=== PATIENT | female | born 1990 | race Caucasian/White ===

== ENCOUNTER 2020-05-28 19:28 | Observation (INO) | payer OTHER, SELFPAY ==
--- NOTE | ~2020-05-28 | MR_ITS ---
EXAMINATION: MR abdomen wo con INDICATION: Right lower abdominal pain TECHNIQUE: Coronal SSFSE ARC, Coronal 2D FIESTA Fat Sat, Sagittal SSFSE Fat Sat ARC, Sagittal SD FIES TA Fat Sat, Axial 3D DualEcho, Axial LAVA, Axial STIR, Axial 2D FIESTA Fat Sat, Axial SSFSE ARC COMPARISON: None FINDINGS: The appendix is normal in size measuring 6 mm. There is a trace amount of nonspecific fluid in the pelvis and right lower quadrant. The visualized portions of the liver, spleen, pancreas, gall bladder, and adrenal glands are normal. The kidneys are unremarkable. There are no dilated loops of b owel. No pathologically enlarged abdominal or pelvic lymph nodes are identified. An intrauterine gest ation is identified. There is a 1.7 cm cyst of the left ovary. IMPRESSION: 1. No MRI correlate for the patient's symptoms. Reviewed, dictated and finalized at location A.
--- NOTE | ~2020-05-28 | US_ITS ---
EXAMINATION: US OB limited DATE: 05/29/2020 13:05 INDICATION: First trimester viability assessment TECHNIQUE: Real-time pelvic transabdominal and transvaginal ultrasound was performed. COMPARISON: None. FINDINGS: The uterus measures 9.1 x 6.7 x 8.0 cm. There is an intrauterine gestational sac. A yolk s ac is identified. heart motion is identified measuring 167 beats per minute (bpm) by M-mode Dop pler. The crown rump length measures 1.3 cm , which correlates with an estimated gestational ag e of 7 weeks and 3 day(s) (+/-) 4 day(s). The right ovary measures 2.7 x 2.9 x 1.3 cm. The left ovary measures 2.3 x 2.2 x 1.6 cm. There is nor mal vascular flow in the ovaries. There is no free fluid in the pelvis. IMPRESSION: 1. Live intrauterine with an estimated gestational age of 7 weeks and 3 day(s) (+/-) 4 day( s) and an estimated delivery date of 01/12/2021. Reviewed, dictated and finalized at location A. IMPRESSION: 1. Live intrauterine with an estimated gestational age of 7 weeks and 3 day(s) (+/-) 4 day(s) and an estimated delivery date of 01/12/2021.
[2020-05-28 19:50] VITALS: BP 107/82; PULSE 127; RESP 20; TEMP 37.1; O2SAT 100
--- NOTE | 2020-05-28 20:36 | ED.ABDPAIN ---
HPI - Abdominal Pain General Chief Complaint: Abdominal Pain Stated Complaint: 7 weeks , can't keep anything down Time Seen by Provider: 05/28/20 20:21 Source: patient Mode of arrival: ambulatory History of Present Illness HPI narrative: This patient is a 29 year old female approximately 7 weeks 5 days who presents for evaluation of nausea and vomiting. She states she has been having nausea and vomiting today, and she is unable to keep anything down. She also reports right lower abdominal pain today. She notices this pain with walking and moving. She also reports temperature at home 100 F. She thinks she may be dehydrated. She has also already had a ultrasound showing an IUP with left ovarian cyst. Related Data Home Medications Medication Instructions Recorded Confirmed aspirin [Aspir-81] 81 mg PO HS 05/28/20 05/29/20 buspirone 5 mg PO HS 05/28/20 05/29/20 progesterone micronized 200 mg PO HS 05/28/20 05/29/20 PNV,calcium 61-[id number]-[id number] acid 1 tablet PO HS 05/29/20 05/29/20 [ Vitamin Plus Low Iron] Allergies Allergy/AdvReac Type Severity Reaction Status Date / Time No Known Allergies Allergy Verified 05/28/20 19:55 Review of Systems Review of Systems: All systems reviewed & are unremarkable except as noted in HPI and below Constitutional: Constitutional: Denies chills and Reports fever(s) Gastrointestinal: Gastrointestinal: Reports abdominal pain, Reports constipation, Denies diarrhea, Reports nausea and Reports vomiting Genitourinary: Genitourinary: Denies abnormal vaginal bleeding, Denies hematuria, Denies nocturia, Denies dysuria and Denies vaginal discharge [facility] Past Medical History Medical History (Updated 05/29/20 @ 07:56 by Yanira Harper MD) Anxiety History of recurrent , currently x 3 x 2 required D&C (normal spontaneous vaginal delivery) x 2 Surgical History Surgical History (Updated 05/29/20 @ 07:55 by Yanira Harper MD) H/O dilation and curettage x 2 Social History Social History (Updated 05/28/20 @ 20:37 by Naima Horn MD) Smoking status: Never smoker Alcohol intake: never Substance use: never Substance use type: does not use Gender identity (if verbalized by the patient): Female Spiritual care concerns: No Exam Const: General: no acute distress and alert Orientation/consciousness: patient oriented x3 HENMT: Head: normocephalic and atraumatic Ears: TM's normal bilaterally Face and sinus: face symmetric Mouth: Yes moist mucous membranes Eyes: EOM: EOMs intact bilaterally Chest: Chest palpation & inspection: normal inspection of the chest Resp: Effort & Inspection: normal respiratory effort, no retractions and no use of accessory muscles Auscultation: clear to auscultation bilaterally Cardio: Rate: tachycardic Rhythm: regular rhythm Heart sounds: no murmurs GI: GI Palp: Yes Soft to palpation, Yes Tenderness to palpation present (GI) (RLQ, suprapubic), No Guarding due to palpation present (GI) and No Rigid due to palpation : General: Yes no CVA tenderness Course Consultations Consultation #1: I discussed case with Dr. harper who agrees to admit or consult on patient with surgery involved for rule out appy. Bedside US shows IUP Date: 05/28/20 Time: 22:26 Vital Signs Vital signs: Vital Signs Temperature 98.7 F 05/28/20 19:50 Pulse Rate 127 H 05/28/20 19:50 Respiratory Rate 20 05/28/20 19:50 Blood Pressure 107/82 05/28/20 19:50 Pulse Oximetry 100 05/28/20 19:50 Temperature 98.3 F 05/29/20 06:00 Pulse Rate 91 05/29/20 06:00 Respiratory Rate 16 05/29/20 06:00 Blood Pressure 112/55 L 05/29/20 06:00 Pulse Oximetry 99 05/29/20 06:00 MDM - Abdominal Pain Lab Data Attestation: I reviewed the patient's lab results. Result diagrams: 05/29/20 05:12 05/29/20 05:12 Labs: Lab Results 05/28/20 05/28/20 09/0
[2020-05-28] MEDS: ONDANSETRON INJ 4 MG/2 ML VIAL IV PUSH (20:53)
[2020-05-28] MEDS: LACTATED RINGERS 1,000 ML 999 ML IV CONT ×2 (20:53→21:55)
[2020-05-28 21:02] LABS: Hematocrit 36.8 % (37.0-47.0); Hemoglobin 12.8 g/dL (12.0-15.0); Mean Corpuscular HGB Conc 34.8 g/dl (32-36); Mean Corpuscular Hemoglobin 30.9 pg (26-34); Mean Corpuscular Volume 88.9 fl (80-100); Mean Platelet Volume 10.5 fl (7.4-10.4); Platelet Count Result 251 k/mm3 (150-375); Red Blood Count 4.14 M/mm3 (4.2-5.4); Red Cell Distribution Width 12.6 % (11.5-14.5); White Blood Count 20.2 K/mm3 (4.5-10.0)
[2020-05-28 21:07] LABS: Add Urine Microscopic? YES; Appearance Urine Clear (Clear); Bacteria Urine Trace /hpf; Bilirubin Urine Negative (Negative); Blood Urine Negative (Negative); Color Urine Yellow (Yellow); Glucose Urine UA Negative (Negative); Ketones Urine 2+ mg/dL (Negative); Leukocyte Esterase Ur Negative LEU/UL (Negative); Mucus Urine Rare /lpf; Nitrate Urine Negative (Negative); Protein Urine Negative (Negative); RBC Urine 0-2 /hpf (0-2); Specific Grav Ur 1.016 (1.001-1.035); Squamous Epithelial Cell Urine Occasional /hpf (Few); Urobilinogen Urine Negative mg/dL (<2.0); WBC Urine 0-3 /hpf
[2020-05-28 21:13] LABS: Alanine Aminotransferase 22 U/L (4-35); Albumin Level 4.3 g/dL (3.5-5.1); Alkaline Phosphatase 57 U/L (38-126); Anion Gap 11 mmol/L (8-16); Aspartate Amino Transferase 22 U/L (14-36); Bilirubin,Total 0.6 mg/dL (0.2-1.3); Blood Urea Nitrogen 8 mg/dL (7-17); Calcium 8.7 mg/dL (8.4-10.2); Carbon Dioxide 21 mmol/L (22-30); Chloride 102 mmol/L (98-107); Estimated CRCL calculation 109 ml/min; Estimated Glomerular Filt Rate > 60; Glucose 93 mg/dL (65-105); Potassium 3.9 mmol/L (3.4-5.0); Sodium 134 mmol/L (137-145)
[2020-05-28 21:16] LABS: Band Neutrophils Percent 2 % (0-6); Monocytes Percent Manual 3 % (3-9); Neutrophils Absolute Manual 18.98 K/mm3 (1.7-7.2); Neutrophils Percent Manual 92 % (46-73); Platelet Estimate Adequate (Adequate); Total Cells Counted 100
[2020-05-28 21:19] VITALS: BP 120/72; PULSE 97; RESP 17; O2SAT 100
[2020-05-28 22:11] VITALS: BP 113/70; PULSE 88; RESP 21; O2SAT 100
[2020-05-28] MEDS: PROMETHAZINE HCL 25 MG/ML AMPUL 12.5 MG IV PUSH (22:40)
[2020-05-28 23:45] VITALS: BP 113/49; PULSE 87; RESP 16; TEMP 37.3; O2SAT 99
--- NOTE | 2020-05-29 00:03 | ADMGEN ---
This patient, Nichole Chauhan, was admitted to Medical Room 253-01. Patient/family oriented to hospital policies and general routines including ID bracelet, bed and alarms, visiting hours, pain management, procedures, bathroom and other care routines, personal items, smoking policy, room service/diet, and visiting hours. Valuables list has been completed. Information on how to activate the Rapid Response Team has been discussed. Patient/Family are encouraged to report perceived risks to care and to ask questions if they do not understand what they are told or what they should do.
[2020-05-29 00:16] VITALS: BP 128/54; PULSE 88; RESP 16; TEMP 36.7; O2SAT 100; BMI 26.5
[2020-05-29] MEDS: LACTATED RINGERS 1,000 ML 125 ML IV CONT ×2 (00:35→13:19)
[2020-05-29 05:41] LABS: Basophils Percent Auto 0.2 % (0.2-1.2); Hematocrit 32.1 % (37.0-47.0); Hemoglobin 11.1 g/dL (12.0-15.0); Immature Granulocyte Absolute 0.08 K/mm3 (0.00-0.031); Immature Granulocyte Percent A 0.6 % (0-0.5); Lymphocytes Absolute Auto 0.84 K/mm3 (0.9-3.2); Lymphocytes Percent Auto 6.6 % (18.3-44.2); Mean Corpuscular HGB Conc 34.6 g/dl (32-36); Mean Corpuscular Hemoglobin 30.1 pg (26-34); Mean Platelet Volume 10.2 fl (7.4-10.4); Monocytes Absolute Auto 0.6 K/mm3 (0.1-0.6); Monocytes Percent Auto 4.7 % (2.6-8.5); Neutrophils Absolute Auto 11.1 K/mm3 (1.3-6.7); Neutrophils Percent Auto 87.9 % (45.5-73.1); Platelet Count Result 219 k/mm3 (150-375); Red Blood Count 3.69 M/mm3 (4.2-5.4); Red Cell Distribution Width 12.6 % (11.5-14.5); White Blood Count 12.6 K/mm3 (4.5-10.0)
[2020-05-29 06:00] VITALS: BP 112/55; PULSE 91; RESP 16; TEMP 36.8; O2SAT 99
[2020-05-29 06:15] LABS: Alanine Aminotransferase 19 U/L (4-35); Albumin Level 3.3 g/dL (3.5-5.1); Alkaline Phosphatase 46 U/L (38-126); Anion Gap 7 mmol/L (8-16); Aspartate Amino Transferase 25 U/L (14-36); Bilirubin,Total 0.7 mg/dL (0.2-1.3); Blood Urea Nitrogen 6 mg/dL (7-17); Calcium 8.2 mg/dL (8.4-10.2); Carbon Dioxide 22 mmol/L (22-30); Chloride 105 mmol/L (98-107); Estimated CRCL calculation 95 ml/min; Estimated Glomerular Filt Rate > 60; Glucose 95 mg/dL (65-105); Potassium 3.7 mmol/L (3.4-5.0); Sodium 134 mmol/L (137-145)
--- NOTE | 2020-05-29 07:50 | PM.IMHP ---
H&P: HPI History of Present Illness Date/Time: 05/29/20 07:50 Chief complaint: with right lower abdominal pain Narrative: Nichole Chauhan is a 29 year old A3 female here through the ER with nausea and vomiting worse yesterday. Patient has had morning sickness and not required medication. Yesterday felt worse and could not keep anything down so came to ER. Also, noted a low grade temp of 100F and onset of RLQ pain. She feels a little better this am with nausea but pain is about the same. Patient just returned from MRI as ordered by ER. Surgery consulted. Patient sees Dr. Cassidy for OB care and has been placed on progesterone and ASA for hx of SAb x 3. Patient recently began Buspar for anxiety. Has had an u/s showing IUP and left ovarian cyst. Review of Systems Constitutional: Constitutional: Reports fatigue Gastrointestinal: Gastrointestinal: Reports constipation, Reports nausea and Reports vomiting PMFSH Past Medical History Medical History (Updated 05/29/20 @ 07:56 by Yanira Parra MD) Anxiety History of recurrent , currently x 3 x 2 required D&C (normal spontaneous vaginal delivery) x 2 Surgical History Surgical History (Updated 05/29/20 @ 07:55 by Yanira Parra MD) H/O dilation and curettage x 2 Social History Social History (Updated 05/28/20 @ 20:37 by Naima Horn MD) Smoking status: Never smoker Alcohol intake: never Substance use: never Substance use type: does not use Gender identity (if verbalized by the patient): Female Spiritual care concerns: No Meds Home Medications and Allergies Home Medications Medication Instructions Recorded Confirmed Type aspirin [Aspir-81] 81 mg PO HS 05/28/20 05/29/20 History buspirone 5 mg PO HS 05/28/20 05/29/20 History progesterone micronized 200 mg PO HS 05/28/20 05/29/20 History PNV,calcium 05-tgzi-xwptl acid 1 tablet PO HS 05/29/20 05/29/20 History [ Vitamin Plus Low Iron] Allergies Allergy/AdvReac Type Severity Reaction Status Date / Time No Known Allergies Allergy Verified 05/28/20 19:55 Vital Signs Vital Signs - 24 hr 05/28/20 19:50 05/28/20 21:19 05/28/20 22:11 Temperature 98.7 F Pulse Rate 127 H 97 88 Respiratory Rate 20 17 21 H Blood Pressure 107/82 120/72 113/70 Pulse Oximetry 100 100 100 05/28/20 23:45 05/29/20 00:16 05/29/20 06:00 Temperature 99.1 F 98.0 F 98.3 F Pulse Rate 87 88 91 Respiratory Rate 16 16 16 Blood Pressure 113/49 L 128/54 L 112/55 L Pulse Oximetry 99 100 99 Exam Const: General: comfortable (appears comfortable getting into bed from wheelchair) and no acute distress Resp: Auscultation: clear to auscultation bilaterally Cardio: Rate: regular rate Rhythm: regular rhythm GI: Inspection: non-distended GI Palp: Yes Soft to palpation, Yes Tenderness to palpation present (GI) (RLQ pain with minimal palpation and with percussion) and No Guarding due to palpation present (GI) Percussion: Yes normal to percussion H&P: Results Labs Labs: Short CBC 05/28/20 05/28/20 05/28/20 Range/Units 20:55 20:55 20:55 WBC 20.2 H (4.5-10.0) K/mm3 RBC 4.14 L (4.2-5.4) M/mm3 Hgb 12.8 (12.0-15.0) g/dL Hct 36.8 L (37.0-47.0) % MCV 88.9 (80-100) fl MCH 30.9 (26-34) pg MCHC 34.8 (32-36) g/dl RDW 12.6 (11.5-14.5) % Plt Count 251 (150-375) k/mm3 MPV 10.5 H (7.4-10.4) fl Immature Gran % (Auto) Not Reportable Neut % (Auto) Not Reportable Lymph % (Auto) Not Reportable Sherman % (Auto) Not Reportable Eos % (Auto) Not Reportable Baso % (Auto) Not Reportable Lymph # (Auto) Not Reportable Sherman # (Auto) Not Reportable Eos # (Auto) Not Reportable Baso # (Auto) Not Reportable Abs Immat Gran (auto) Not Reportable Absolute Neuts (auto) Not Reportable Absolute Nucleated RBC Not Reportable Total Counted 100 Neutrophils % (Anne-Marie
--- NOTE | 2020-05-29 09:16 | PM.CNGS ---
Assessment and Plan Assessment and plan (1) RLQ abdominal pain: Code(s): R10.31 - Right lower quadrant pain Status: Acute Assessment and Plan: MRI reviewed and negative for appy, appendix clearly visualized and normal, minimal fluid in pelvis of questionable etiology, pain seems to be resolving, WBC trending down, cont abx and serial exams for now (2) 7 weeks gestation of : Code(s): Z3A.01 - Less than 8 weeks gestation of Status: Acute Assessment and Plan: management per OB History of Present Illness Consult details Consult date: 05/29/20 Reason for consult: abdominal pain Requesting physician: Yanira Parra MD Narrative: Pt is a 29 y/o F, currently 7 wks , presenting c 1 d h/o RLQ abd pain and intractable nausea. Pt reports pain has largely always been in the RLQ and at one point she was having difficulty even ambulating. Pt reports nausea and anorexia yesterday. Pt c morning sickness during but reports sx are different from that. This am, pt reports nausea is resolved and pain is better but not gone. Review of Systems Constitutional: Constitutional: Denies chills, Denies fatigue, Denies lethargy and Denies weakness Eyes: Eyes: Reports no additional eye complaints ENT: Denies Normal hearing present and Denies dysphagia Cardiovascular: Cardiovascular: Reports no additional cardiovascular complaints Respiratory: Respiratory: Reports no additional respiratory complaints Gastrointestinal: Gastrointestinal: Reports abdominal pain, Denies bloating, Denies hematochezia, Denies constipation, Reports heartburn, Denies diarrhea, Reports nausea, Denies vomiting and Denies hematemesis Genitourinary: Genitourinary: Reports no additional female genitourinary complaints Musculoskeletal: Musculoskeletal: Reports no additional musculoskeletal complaints Integumentary/Breasts: Skin/Breast: Reports system reviewed and no additional complaints, except as docu Neurologic: Reports system reviewed and no additional complaints, except as documented Psychiatric: Psychiatric: Reports no additional psychiatric complaints PMFSH Past Medical History Medical History Anxiety History of recurrent , currently x 3 x 2 required D&C (normal spontaneous vaginal delivery) x 2 Surgical History Surgical History H/O dilation and curettage x 2 Social History Social History Smoking status: Never smoker Alcohol intake: never Substance use: never Substance use type: does not use Gender identity (if verbalized by the patient): Female Spiritual care concerns: No Meds Home Medications and Allergies Home Medications Medication Instructions Recorded Confirmed Type aspirin [Aspir-81] 81 mg PO HS 05/28/20 05/29/20 History buspirone 5 mg PO HS 05/28/20 05/29/20 History progesterone micronized 200 mg PO HS 05/28/20 05/29/20 History PNV,calcium 86-jnjk-[id number] acid 1 tablet PO HS 05/29/20 05/29/20 History [ Vitamin Plus Low Iron] Allergies Allergy/AdvReac Type Severity Reaction Status Date / Time No Known Allergies Allergy Verified 05/28/20 19:55 Vital Signs Vital Signs - 24 hr 05/28/20 19:50 05/28/20 21:19 05/28/20 22:11 Temperature 37.1 C Pulse Rate 127 H 97 88 Respiratory Rate 20 17 21 H Blood Pressure 107/82 120/72 113/70 Pulse Oximetry 100 100 100 05/28/20 23:45 05/29/20 00:16 05/29/20 06:00 Temperature 37.3 C 36.7 C 36.8 C Pulse Rate 87 88 91 Respiratory Rate 16 16 16 Blood Pressure 113/49 L 128/54 L 112/55 L Pulse Oximetry 99 100 99 Exam Const: General: comfortable and no acute distress HENMT: Mouth: Yes moist mucous membranes Eyes: General: appearance normal, both eyes and all related structures Pupils: Equal, rou
[2020-05-29 14:00] VITALS: BP 112/59; PULSE 79; RESP 16; TEMP 36; O2SAT 100
[2020-05-29] MEDS: polyethylene glycoL 3350 17 GM POWD.PACK PO (15:26)
--- NOTE | 2020-06-28 09:10 | P.DS_ITS ---
DS: Admitting Diagnosis Admitting Diagnosis Admitting Diagnosis: with right lower abdominal pain DS: Summary Hospital Course Reason for hospitalization: admitted for observation due to RLQ pain serial exams, MRI of pelvis, and surgical consult did not reveal a surgical abdomen or evidence of appendicitis tolerating diet and OTC meds for pain Status at Discharge Functional status at discharge: independent ambulation Overall status at discharge: patient is progressing back to baseline Time Spent with Patient Time attestation: Total time spent providing and/or coordinating discharge services: Discharge Plan Discharge Attending physician on discharge: Yanira Parra Consulting providers: ; Ayde Barfield ; Kumar Parisi Discharging Clinician: Yanira Parra Patient Disposition: Home, Self-Care Activity: as tolerated Diet: regular Discharge Instructions: return to local ER if pain increases Stand Alone Forms: General Discharge Information Follow-up/Referrals: Channing Cassidy [Other] - Keep Reg. Scheduled Appt. 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
== END 2020-05-29 15:45 | disposition home or self-care (01) ==
LOC: ANHED 22:40 → ANH2MED 23:29
PROVIDERS: Admitting Provider Obstetrics & Gynecology Gynecology; Emergency Provider General Practice; Visit Provider Obstetrics & Gynecology Gynecology
DX: O21.0 Mild hyperemesis gravidarum (principal); D72.829 Elevated white blood cell count, unspecified; Z3A.01 Less than 8 weeks gestation of pregnancy; F41.9 Anxiety disorder, unspecified; Z79.82 Long term (current) use of aspirin
CPT/HCPCS: 36415; 74181; 76815; 80053; 81001; 83605; 85025; 96361; 96365; 96375; 99285; G0378; J0131; J2405; J2543; J2550; J7120

== ENCOUNTER 2021-09-22 11:12 | Emergency (ER) | payer OTHER, SELFPAY ==
[2021-09-22 11:51] VITALS: BP 126/90; PULSE 107; RESP 16; TEMP 36.6; O2SAT 100
--- NOTE | 2021-09-22 13:05 | ED.GENADULT ---
HPI - General Adult General Chief complaint: Ear Stated complaint: lump/bump on neck Source: patient and RN notes reviewed Limitations: no limitations History of Present Illness HPI narrative: The patient, previously mostly healthy, presents with neck and mood concerns. Patient states that during her she took BuSpar for anxiety, up till about 8 months ago would like a refill. She feels that there is more stressors in her life, since the discovery of a right-sided thyroid lobe. She has had blood tests taken, and is scheduled for ENT consultation. No fever, weight loss, swallowing problems; no URI?sinusitis, loss of taste/smell, CP, S OB; no hallucinations, SI/HI-but she has intermittent insomnia. Related Data Home Medications Medication Instructions Recorded Confirmed aspirin [Aspir-81] 81 mg PO HS 05/28/20 05/29/20 buspirone 5 mg PO HS 05/28/20 05/29/20 progesterone micronized 200 mg PO HS 05/28/20 05/29/20 Vitamin Plus Low Iron 1 tablet PO HS 05/29/20 05/29/20 Allergies Allergy/AdvReac Type Severity Reaction Status Date / Time No Known Allergies Allergy Verified 05/28/20 19:55 Review of Systems Review of Systems: General/Constitutional: No weight loss,fever Eyes: N0: Redness,discharge Ears/Nose/Throat: No: Epistaxis,ear discharge Respiratory: Denies: Hemoptysis Gastrointestinal: No Vomiting, Bleeding-rectal Skin: No Lumps, eruption Neurologic: No Focal Weakness,Sz Hematologic: Denies: Petechiae/Purpura Psychiatric: No: Suicida ideationl All Other Systems: Reviewed and Negative [facility] Past Medical History Medical History (Updated 09/22/21 @ 13:09 by Rober Hardy MD) Anxiety History of recurrent , currently x 3 x 2 required D&C (normal spontaneous vaginal delivery) x 2 Surgical History Surgical History H/O dilation and curettage x 2 Social History Social History Smoking status: Never smoker Alcohol intake: never Substance use: never Substance use type: does not use Gender identity (if verbalized by the patient): Female Spiritual care concerns: No Comments At time of signature, agree with nursing past medical, surgical, social and family history. There is no relevant family history pertinent to the presenting complaint Exam Narrative: General Appearance: Well appearing, No distress EYE: PERRLA, Conjunctiva clear Ears: External ear normal Nose: Normal nose Mouth/Throat: Normal appearing, Normal lips Neck: Supple, half-dollar sized right-sided, soft freely mobile, nontender/nonfluctuant thyroid mass Respiratory: Airway patent, No respiratory distress Cardiovascular: RRR Abdomen: Soft, Non-tender, Musculoskeletal: Full ROM Skin: Warm, Dry Neurological: A&O x3, CN II-X intact Psychiatric: Normal mood, Normal affect-previously tearful Course Vital Signs Vital signs: Vital Signs Temperature 97.8 F 09/22/21 11:51 Pulse Rate 107 H 09/22/21 11:51 Respiratory Rate 16 09/22/21 11:51 Blood Pressure 126/90 09/22/21 11:51 Pulse Oximetry 100 09/22/21 11:51 Temperature 97.8 F 09/22/21 11:51 Pulse Rate 107 H 09/22/21 11:51 Respiratory Rate 16 09/22/21 11:51 Blood Pressure 126/90 09/22/21 11:51 Pulse Oximetry 100 09/22/21 11:51 Medical Decision Making Vital Signs Vital Signs: Vital Signs Temperature 97.8 F 09/22/21 11:51 Pulse Rate 107 H 09/22/21 11:51 Respiratory Rate 16 09/22/21 11:51 Blood Pressure 126/90 09/22/21 11:51 Pulse Oximetry 100 09/22/21 11:51 Temperature 97.8 F 09/22/21 11:51 Pulse Rate 107 H 09/22/21 11:51 Respiratory Rate 16 09/22/21 11:51 Blood Pressure 126/90 09/22/21 11:51 Pulse Oximetry 100 09/22/21 11:51 Discharge Plan Discharge Clinical Impression: Mass of right side of neck Patient Disposition: Home,
== END 2021-09-22 13:20 | disposition home or self-care (01) ==
PROVIDERS: Emergency Provider Emergency Medicine
DX: R22.1 Localized swelling, mass and lump, neck (principal); Z20.822 Contact with and (suspected) exposure to COVID-19; F41.9 Anxiety disorder, unspecified; Z79.82 Long term (current) use of aspirin
CPT/HCPCS: 99213; G0463

== ENCOUNTER → 2021-09-26 09:57 | Outpatient (CLI) | payer OTHER, SELFPAY ==
[2021-09-26 21:22] LABS: SARS-CoV-2 RNA PCR Negative
== END ==
PROVIDERS: Visit Provider Emergency Medicine
DX: R22.1 Localized swelling, mass and lump, neck (principal); Z20.822 Contact with and (suspected) exposure to COVID-19
CPT/HCPCS: C9803; U0003; U0005

== ENCOUNTER 2021-11-04 09:02 | Outpatient (CLI) | payer OTHER, SELFPAY ==
--- NOTE | ~2021-11-04 | US_ITS ---
EXAMINATION: US FNA w image guidance DATE: 11/04/2021 09:50 INDICATION: Right thyroid nodule TECHNIQUE: A time-out was performed to verify the patient's name, date of , and procedure to be performed . The procedure and its benefits and risks were discussed with the patient. Risks specifically discus sed included bleeding and infection. The patient understood the risks and agreed to proceed. The neck was prepped and draped in the usual sterile manner. 3 mL 1% lidocaine was used for local anesthesia . 6 passes were made with a 25G needle into the lesion. An attempt was made to aspirate the more cys tic-appearing component of the nodule utilizing a 21G needle which yielded no fluid. Appropriate need le location was documented with continuous sonographic guidance. The specimens were passed to the topathology technologist in the room. A sterile bandage was applied. There were no immediate complic ations. FINDINGS: Grayscale ultrasound images demonstrate biopsy needles advanced into the solid echogenic components o f a 3.5 cm mixed solid and cystic right thyroid mass. IMPRESSION: 1. Successful ultrasound-guided fine needle aspiration of a 3.5 cm mixed solid and cystic right thyr oid mass. Reviewed, dictated and finalized at location A. PROGRAMMER IMPRESSION: 1. Successful ultrasound-guided fine needle aspiration of a 3.5 cm mixed solid and cystic right thyroid mass.
== END 2021-11-04 09:03 | disposition home or self-care (01) ==
PROVIDERS: Visit Provider Otolaryngology
DX: E04.2 Nontoxic multinodular goiter (principal)
CPT/HCPCS: 10005; 88173; 88305

== ENCOUNTER 2022-05-03 10:31 | Outpatient (CLI) | payer OTHER, SELFPAY ==
--- NOTE | ~2022-05-03 | US_ITS ---
EXAMINATION: US thyroid DATE: 05/03/2022 11:21 INDICATION: Nontoxic multinodular goiter. TECHNIQUE: Multiple ultrasound images of the thyroid were obtained. COMPARISON: Ultrasound 11/04/2021, 10/12/21 FINDINGS: The right thyroid lobe measures 5.2 x 3.0 x 2.7 cm. The left thyroid lobe measures 4.8 x 1.3 x 1.4 c m. In the right thyroid lobe, there is a 3.5 cm mixed cystic and solid, isoechoic, wider than tall n odule with smooth margin without echogenic foci (TI-RADS TR2) status post benign biopsy on 11/04/2021. In the left thyroid lobe, there is a 12 mm predominantly solid, hypoechoic, wider than tall nodule w ith lobulated margin without echogenic foci (TR4), stable from 10/12/21. In the left thyroid lobe, the re is a 9 mm solid, isoechoic, wider than tall nodule with ill-defined margin without echogenic foci (TR3). IMPRESSION: 1. Multinodular goiter. Thyroid ultrasound is recommended in one year. Reviewed, dictated and finalized at location A.
== END 2022-05-03 10:32 | disposition home or self-care (01) ==
PROVIDERS: Visit Provider Otolaryngology
DX: E04.2 Nontoxic multinodular goiter (principal)
CPT/HCPCS: 76536

== ENCOUNTER 2022-11-09 12:31 | Outpatient (CLI) | payer OTHER, SELFPAY ==
--- NOTE | ~2022-11-09 | US_ITS ---
EXAMINATION: US thyroid DATE: 11/09/2022 14:09 INDICATION: Nontoxic multinodular goiter. TECHNIQUE: Multiple ultrasound images of the thyroid were obtained. COMPARISON: Thyroid ultrasound 05/03/2022, 11/04/2021, 10/12/21 FINDINGS: The right thyroid lobe measures 5.5 x 3.5 x 2.8 cm. The left thyroid lobe measures 5.3 x 1.5 x 1.2 c m. In the right thyroid lobe, there is a 3.5 cm mixed cystic and solid, hypoechoic, wider than tall nodule with smooth margin without echogenic foci (TI-RADS TR3), stable from 11/04/21 when biopsy was b enign. In the left thyroid lobe, there is a 1.3 cm mixed cystic and solid, hypoechoic, wider than lilo l nodule with lobulated margin without echogenic foci (TR4), stable from 10/12/21. In the left thyroid lobe, there is an 8 mm solid, hypoechoic, wider than tall nodule with lobulated margin without echog enic foci (TR4), stable from 10/12/21. IMPRESSION: 1. Stable multinodular goiter. Consider thyroid ultrasound in one year. Reviewed, dictated and finalized at location A. EAR CARDIOLOGY TECHNOLOGIST
== END 2022-11-09 12:32 | disposition home or self-care (01) ==
PROVIDERS: Visit Provider Otolaryngology
DX: E04.2 Nontoxic multinodular goiter (principal)
CPT/HCPCS: 76536

== ENCOUNTER 2023-11-15 16:07 | Outpatient (CLI) | payer OTHER, SELFPAY ==
--- NOTE | ~2023-11-15 | US_ITS ---
EXAMINATION: US thyroid DATE: 11/15/2023 16:48 INDICATION: Nontoxic multinodular goiter. TECHNIQUE: Multiple ultrasound images of the thyroid were obtained. COMPARISON: Ultrasound 11/09/2022, 05/03/2022, 10/12/2021, 11/04/2021 FINDINGS: The right thyroid lobe measures 5.1 x 1.7 x 1.7 cm. The left thyroid lobe measures 4.2 x 1.5 x 1.2 c m. In the right thyroid lobe, there is a 19 mm mixed cystic and solid, hypoechoic, wider than tall n odule with smooth margin without echogenic foci (TI-RADS TR3), decreased in size from 11/09/2022 and s tatus post benign biopsy on 11/04/2021. In the left thyroid lobe, there is a 6 mm solid, very hypoecho ic, wider than tall nodule with smooth margin without echogenic foci (TR4). In the left thyroid lobe, there is a 14 mm predominantly solid, hypoechoic, wider than tall nodule with smooth margin without echogenic foci (TR4), stable from 10/12/2021. In the left thyroid lobe, there is a 11 mm mixed cystic and solid, isoechoic, wider than tall nodule with smooth margin without echogenic foci (TR2). IMPRESSION: 1. Multinodular goiter. Thyroid ultrasound is recommended in one year. Reviewed, dictated and finalized at location E. TAL MARKETER
== END 2023-11-15 16:08 | disposition home or self-care (01) ==
LOC: ANHIMG 16:12
PROVIDERS: Visit Provider Otolaryngology
DX: E04.2 Nontoxic multinodular goiter (principal)
CPT/HCPCS: 76536

== ENCOUNTER 2024-03-31 10:18 | Outpatient (RCR) | payer OTHER, SELFPAY ==
[2024-03-31] MEDS: RHO(D) IMMUNE GLOBULIN 300 MCG/2 ML SYRINGE IM (13:45)
== END 2024-06-29 23:59 | disposition home or self-care (01) ==
LOC: ANHLAB 10:18
PROVIDERS: Visit Provider Obstetrics & Gynecology
DX: Z29.13 Encounter for prophylactic Rho(D) immune globulin (principal); O36.0190 Maternal care for anti-D [Rh] antibodies, unspecified trimester, not applicable or unspecified; Z3A.00 Weeks of gestation of pregnancy not specified
CPT/HCPCS: 36415; 85461; 86850; 86900; 86901; 90384; 96372; J2790

== ENCOUNTER 2024-06-05 16:43 | Outpatient (CLI) | payer OTHER, SELFPAY ==
[2024-06-05 17:16] VITALS: BP 140/88; PULSE 106
[2024-06-05 17:20] LABS: Add Urine Microscopic? YES; Appearance Urine Clear (Clear); Basophils Percent Auto 0.1 % (0.2-1.2); Bilirubin Urine Negative (Negative); Blood Urine Negative (Negative); Color Urine Dark Yellow (Yellow); Glucose Urine UA Negative (Negative); Hematocrit 30.9 % (37.0-47.0); Hemoglobin 10.2 g/dL (12.0-15.0); Immature Granulocyte Absolute 0.07 K/mm3 (0.00-0.031); Immature Granulocyte Percent A 0.6 % (0-0.5); Ketones Urine Trace mg/dL (Negative); Leukocyte Esterase Ur Negative LEU/UL (Negative); Lymphocytes Absolute Auto 1.85 K/mm3 (0.9-3.2); Lymphocytes Percent Auto 16.8 % (18.3-44.2); Mean Corpuscular Hemoglobin 29.3 pg (26-34); Mean Corpuscular Volume 88.8 fl (80-100); Monocytes Absolute Auto 0.4 K/mm3 (0.1-0.6); Monocytes Percent Auto 3.4 % (2.6-8.5); Neutrophils Absolute Auto 8.7 K/mm3 (1.3-6.7); Neutrophils Percent Auto 79.1 % (45.5-73.1); Nitrate Urine Negative (Negative); Platelet Count Result 203 k/mm3 (150-375); Protein Urine Negative (Negative); Red Blood Count 3.48 M/mm3 (4.2-5.4); Red Cell Distribution Width 13.4 % (11.5-14.5); Specific Grav Ur 1.021 (1.001-1.035); Urobilinogen Urine 0.2 mg/dL (<2.0); pH Urine 5.5 (5.0-9.0)
[2024-06-05 17:29] LABS: Total Protein Urine Random 7 mg/dL; Ur Ttl Prot Creatinine Ratio 0.05 mg/mg (0-0.20)
[2024-06-05 17:31] VITALS: BP 137/81; PULSE 107
[2024-06-05 17:31] LABS: Alanine Aminotransferase 16 U/L (6-35); Albumin Level 3.5 g/dL (3.5-5.1); Alkaline Phosphatase 159 U/L (38-126); Anion Gap 9 mmol/L (4-12); Aspartate Amino Transferase 28 U/L (14-36); Bilirubin,Total 0.2 mg/dL (0.2-1.3); Blood Urea Nitrogen 11 mg/dL (7-17); Calcium 8.4 mg/dL (8.4-10.2); Carbon Dioxide 20 mmol/L (22-30); Chloride 104 mmol/L (98-107); Estimated Glomerular Filt Rate > 60; Glucose 111 mg/dL (65-110); Potassium 3.9 mmol/L (3.4-5.0); Sodium 133 mmol/L (137-145); Uric Acid 4.3 mg/dL (2.5-7.5)
[2024-06-05 17:46] VITALS: BP 130/85; PULSE 98
[2024-06-05 17:56] VITALS: BP 140/88; PULSE 95
== END 2024-06-05 17:50 | disposition home or self-care (01) ==
LOC: ANHOBOP 16:51 → ANHLDR 16:56
PROVIDERS: Obstetrics & Gynecology; Visit Provider Obstetrics & Gynecology
DX: O13.9 Gestational [pregnancy-induced] hypertension without significant proteinuria, unspecified trimester (principal); Z3A.00 Weeks of gestation of pregnancy not specified
CPT/HCPCS: 36415; 59025; 80053; 81001; 82570; 84156; 84550; 85025; 99199

== ENCOUNTER 2024-06-09 11:17 | Inpatient (IN) | payer OTHER, SELFPAY ==
[2024-06-09] VITALS (30 sets, daily range): BP systolic 126–146; BP diastolic 79–103; PULSE 68–99; TEMP 36.4–37.1; BMI 31.6
[2024-06-09 11:54] LABS: Basophils Percent Auto 0.1 % (0.2-1.2); Hematocrit 30.1 % (37.0-47.0); Immature Granulocyte Absolute 0.03 K/mm3 (0.00-0.031); Immature Granulocyte Percent A 0.3 % (0-0.5); Lymphocytes Absolute Auto 1.47 K/mm3 (0.9-3.2); Lymphocytes Percent Auto 16.6 % (18.3-44.2); Mean Corpuscular HGB Conc 33.2 g/dl (32-36); Mean Corpuscular Hemoglobin 29.3 pg (26-34); Mean Corpuscular Volume 88.3 fl (80-100); Mean Platelet Volume 12.2 fl (7.4-10.4); Monocytes Absolute Auto 0.4 K/mm3 (0.1-0.6); Monocytes Percent Auto 4.3 % (2.6-8.5); Neutrophils Percent Auto 78.7 % (45.5-73.1); Platelet Count Result 209 k/mm3 (150-375); Red Blood Count 3.41 M/mm3 (4.2-5.4); Red Cell Distribution Width 13.8 % (11.5-14.5); White Blood Count 8.9 K/mm3 (4.5-10.0)
--- NOTE | 2024-06-09 12:03 | LDADM ---
This patient, Nichole Chauhan, was admitted to Labor/Delivery/Recovery 105 on 06/09/24 at 11:17. Plans for labor, pain management and were discussed with patient. Patient/family oriented to hospital policies and general routines including ID bracelet, bed and alarms, visiting hours, pain management, procedures, bathroom and other care routines, personal items, smoking policy, room service/diet and guest tray routines, security routines, and visiting hours. Patient/Family are encouraged to report perceived risks to care and to ask questions if they do not understand what they are told or what they should do. See OBIX for further documentation.
[2024-06-09 12:09] LABS: Alanine Aminotransferase 16 U/L (6-35); Albumin Level 3.4 g/dL (3.5-5.1); Alkaline Phosphatase 149 U/L (38-126); Anion Gap 10 mmol/L (4-12); Aspartate Amino Transferase 28 U/L (14-36); Bilirubin,Total 0.1 mg/dL (0.2-1.3); Blood Urea Nitrogen 11 mg/dL (7-17); Calcium 8.4 mg/dL (8.4-10.2); Carbon Dioxide 17 mmol/L (22-30); Chloride 103 mmol/L (98-107); Estimated Glomerular Filt Rate > 60; Glucose 114 mg/dL (65-110); Potassium 4.1 mmol/L (3.4-5.0); Sodium 130 mmol/L (137-145); Uric Acid 4.3 mg/dL (2.5-7.5)
[2024-06-09 12:21] LABS: Creatinine Urine 101.5 mg/dL; Total Protein Urine Random 9 mg/dL; Ur Ttl Prot Creatinine Ratio 0.09 mg/mg (0-0.20)
[2024-06-09] MEDS: miSOPROStol 25 MCG TABLET 50 MCG BUCCAL ×2 (12:24→17:02)
[2024-06-09 12:26] LABS: Rapid Plasma Reagin Non-Reactive (NonReactive)
[2024-06-09 12:50] LABS: HIV 1/2 Ab P24 Ag Result Negative (Negative)
--- NOTE | 2024-06-09 15:27 | WPDANESEPP ---
Anes - Eval Pre Procedure Procedure: Labor epidural Date/Time: 06/09/24 15:27 Surgeon: Michael Preop Diagnosis: Pain during labor Pre Op Diagnosis: IOL Patient Data Age: 33 Gender: F Height: 1.68 m Weight: 89 kg Last Vital Signs Temp 37.1 C 06/09/24 12:00 Pulse 89 06/09/24 15:00 BP 131/85 06/09/24 15:00 O2 Del Method Room Air 06/09/24 12:00 Allergies Allergy/AdvReac Type Severity Reaction Status Date / Time No Known Allergies Allergy Verified 05/20/24 13:24 Home Medications Medication Instructions Recorded Confirmed Type aspirin 81 mg tablet,delayed 81 mg PO HS 05/28/20 05/20/24 History release (Aspir-) vitamin with calcium 1 tablet PO HS 05/29/20 06/09/24 History no.72-iron 27 mg-folic acid 1 mg tablet ( Vitamins Plus Low Iron) levothyroxine 25 mcg tablet 25 mcg PO DAILY 05/20/24 05/20/24 History sertraline 25 mg tablet 25 mg PO DAILY 05/20/24 05/20/24 History doxylamine succinate 25 mg tablet 12.5 mg PO HS PRN Sleep 06/09/24 06/09/24 History (Unisom (doxylamine)) magnesium glycinate 100 mg (as 350 mg PO DAILY PRN Sleep 06/09/24 06/09/24 History glycinate) tablet Laboratory Tests 06/09/24 06/09/24 06/09/24 11:44 11:45 11:45 WBC 8.9 K/mm3 (4.5-10.0) RBC 3.41 L M/mm3 (4.2-5.4) Hgb 10.0 L g/dL (12.0-15.0) Hct 30.1 L % (37.0-47.0) MCV 88.3 fl (80-100) MCH 29.3 pg (26-34) MCHC 33.2 g/dl (32-36) RDW 13.8 % (11.5-14.5) Plt Count 209 k/mm3 (150-375) MPV 12.2 H fl (7.4-10.4) Immature Gran % (Auto) 0.3 % (0-0.5) Neut % (Auto) 78.7 H % (45.5-73.1) Lymph % (Auto) 16.6 L % (18.3-44.2) Ida % (Auto) 4.3 % (2.6-8.5) Eos % (Auto) 0.0 % (0-4.4) Baso % (Auto) 0.1 L % (0.2-1.2) Lymph # (Auto) 1.47 K/mm3 (0.9-3.2) Ida # (Auto) 0.4 K/mm3 (0.1-0.6) Eos # (Auto) 0.0 K/mm3 (0-0.3) Baso # (Auto) 0.0 K/mm3 (0.0-0.1) Abs Immat Gran (auto) 0.03 K/mm3 (0.00-0.031) Absolute Neuts (auto) 7.0 H K/mm3 (1.3-6.7) Absolute Nucleated RBC 0.000 K/mm3 (0.0-0.012) Nucleated RBC % 0.0 % (0.0-0.2) Sodium 130 L mmol/L (137-145) Potassium 4.1 mmol/L (3.4-5.0) Chloride 103 mmol/L (98-107) Carbon Dioxide 17 L mmol/L (22-30) Anion Gap 10 mmol/L (4-12) BUN 11 mg/dL (7-17) Creatinine 0.60 L mg/dL (0.7-1.0) Estim Creat Clear Calc Not Reportable Estimated GFR > 60 (59 - ) Glucose 114 H mg/dL (65-110) Uric Acid Cancelled 4.3 mg/dL (2.5-7.5) Calcium 8.4 mg/dL (8.4-10.2) Total Bilirubin 0.1 L mg/dL (0.2-1.3) AST 28 U/L (14-36) ALT 16 U/L (6-35) Alkaline Phosphatase 149 H U/L (38-126) Total Protein 6.0 L g/dL (6.3-8.2) Albumin 3.4 L g/dL (3.5-5.1) U Random Total Protein 9 mg/dL Urine Creatinine 101.5 mg/dL Protein/Creat Ratio 2 0.09 mg/mg (0-0.20) RPR Non-reactive (NonReactive) HIV 1&2 Ab/P24 Ag 4thGn Negative (Negative) Blood Type A Negative Antibody Screen Positive Antibody Identification Passive Due to RH Imm Glob Antigen Identification TNP SHANTHI, IgG Interpret Neg SHANTHI, Poly Interpret TNP SHANTHI, Complement Interp Negative Patient hx anesthesia problems: none Family hx anesthesia problems: none Results Review: All pre-operative results and documents have been reviewed as part of the pre-operative evaluation. [facility] Past Medical History Medical History Anxiety History of recurrent
[2024-06-10] VITALS (158 sets, daily range): BP systolic 106–154; BP diastolic 42–121; PULSE 56–203; RESP 16–18; TEMP 36.3–36.6; O2SAT 76–100
[2024-06-10] MEDS: LACTATED RINGERS 1,000 ML 125 ML IV CONT ×2 (00:54→05:29)
[2024-06-10] MEDS: OXYTOCIN 30 UNITS/NS 500 ML 30 UNITS/500 ML BAG IV CONT (01:59)
[2024-06-10] MEDS: ONDANSETRON INJ 4 MG/2 ML VIAL IV PUSH (05:29)
[2024-06-10] MEDS: LEVOTHYROXINE SODIUM 25 MCG TABLET PO (08:02)
--- NOTE | 2024-06-10 08:33 | PM.IMHP ---
H&P: HPI History of Present Illness Date/Time: 06/10/24 08:33 Chief Complaint: gestational hypertension Narrative: Patient is a 33 year old female at 38w1d who presents for induction of labor indicated for gestational hypertension. She met criteria by elevated BP in the office 06/09, but denies headaches, vision changes, chest pain, dyspnea, RUQ pain or epigastric pain. has been otherwise uncomplicated. She reports good movement, denies LOF or VB. Review of Systems Review of Systems: All systems reviewed & are unremarkable except as noted in HPI and below PMFSH Past Medical History Medical History (Updated 06/10/24 @ 08:35 by Nasir Rodriguez MD) Anxiety History of recurrent , currently x 3 x 2 required D&C (normal spontaneous vaginal delivery) x 2 Surgical History Surgical History H/O dilation and curettage x 2 Family History Family History Father Diabetes mellitus Congestive heart failure Hypertension Guillain John? syndrome Sibling Lupus Grandparent Breast cancer Grandparent Parkinson disease Social History Social History Smoking status: Never smoker Alcohol intake: never Substance use: never Substance use type: does not use Do You Feel Safe in your Home?: Yes Lack of Transportation: No Lack of Food: Never True Current Housing: I Have Housing Concerned About Future Housing: No Difficulty Paying Gas/Electric Bills: No Difficulty Paying for Meds: No Currently Unemployed: No Education: Bachelor's Degree Difficulty w/ Childcare or Family Care: No Gender identity (if verbalized by the patient): Female Spiritual care concerns: No Meds Home Medications and Allergies Home Medications Medication Instructions Recorded Confirmed Type aspirin 81 mg tablet,delayed 81 mg PO HS 05/28/20 05/20/24 History release (Aspir-) vitamin with calcium 1 tablet PO HS 05/29/20 06/09/24 History no.72-iron 27 mg-folic acid 1 mg tablet ( Vitamins Plus Low Iron) levothyroxine 25 mcg tablet 25 mcg PO DAILY 05/20/24 05/20/24 History sertraline 25 mg tablet 25 mg PO DAILY 05/20/24 05/20/24 History doxylamine succinate 25 mg tablet 12.5 mg PO HS PRN Sleep 06/09/24 06/09/24 History (Unisom (doxylamine)) magnesium glycinate 100 mg (as 350 mg PO DAILY PRN Sleep 06/09/24 06/09/24 History glycinate) tablet Allergies Allergy/AdvReac Type Severity Reaction Status Date / Time No Known Allergies Allergy Verified 05/20/24 13:24 Vital Signs Vital Signs - 24 hr 06/09/24 12:00 06/09/24 12:02 06/09/24 12:30 Temperature Pulse Rate 95 98 Blood Pressure 134/86 132/87 Pulse Oximetry Oxygen Delivery Room Air 06/09/24 12:00 06/09/24 13:00 06/09/24 13:30 Temperature 98.7 F Pulse Rate 87 82 Blood Pressure 135/89 130/83 Pulse Oximetry Oxygen Delivery 06/09/24 14:00 06/09/24 14:30 06/09/24 15:00 Temperature Pulse Rate 98 94 89 Blood Pressure 137/81 137/90 131/85 Pulse Oximetry Oxygen Delivery 06/09/24 15:30 06/09/24 16:00 06/09/24 17:04 Temperature Pulse Rate 85 94 93 Blood Pressure 135/87 128/91 H 141/92 H Pulse Oximetry Oxygen Delivery 06/09/24 17:30 06/09/24 18:00 06/09/24 17:00 Temperature 98.7 F Pulse Rate 99 98 Blood Pressure 138/95 H 139/79 Pulse Oximetry Oxygen Delivery 06/09/24 18:30 06/09/24 19:00 06/09/24 19:30 Temperature 97.5 F L Pulse Rate 81 89 85 Blood Pressure 144/83 H 140/84 135/94 H Pulse Oximetry Oxygen Delivery 06/09/24 20:00 06/09/24 21:10 06/09/24 21:15 Temperature Pulse Rate 96 93 99 Blood Pressure 139/99 H 143/87 H 131/84 Pulse Oximetry Oxygen Delivery 06/09/24 21:30 06/09/24 21:45 06/09/24 22:00 Temperature P
[2024-06-10] MEDS: SERTRALINE HCL 25 MG TABLET PO (09:36)
--- NOTE | 2024-06-10 11:15 | P.PCNOB_ITS ---
OB - Vaginal Delivery Note Procedure Delivery date: 06/10/24 Events: Gestational Hypertension Induction method: Per Misoprostol Protocol Delivery augmentation: Rupture of Membranes and Pitocin Delivery monitor: External FHT and Internal Uterine Route of delivery: Episiotomy description: None Laceration Description: Perineal - 1st Degree Delivery repair: vicryl Specimen: No Quantitative Blood Loss (ml): 150 Anesthesia type: Epidural Disposition: Floor Complications: No immediate complications Narrative: See H&P and notes for details on patient's admission and labor. She progressed to complete cervical dilation and at the appropriate time began pushing. With adequate expulsive efforts by the mother, the baby's head was delivered without difficulty. Nuchal cord was present x1 and was easily reduced. The baby's right shoulder was anterior and delivered under the pubic symphysis without difficulty. The posterior shoulder and the rest of the baby delivered without difficulty. The umbilical cord was doubly clamped and cut after 60 seconds of delayed cord clamping. Care of the was then assumed by the nursing staff. [place] Baby Date of : 06/10/24 Gestational Age by Date: 37 gender: Female presentation: vertex position: Left Occiput Anterior Placenta delivery description: Expressed Cord Vessel Description: 3 Vessels, Nuchal Cord, Reduced and Delayed Cord Clamping
[2024-06-10] MEDS: OXYTOCIN 30 UNITS/NS 500 ML 30 UNITS/500 ML BAG 125 UNITS IV CONT (12:06)
[2024-06-10] MEDS: miSOPROStol 200 MCG TABLET 800 MCG (12:32)
[2024-06-10] MEDS: IBUPROFEN 600 MG TABLET PO ×3 (12:33→23:40)
[2024-06-10] MEDS: ACETAMINOPHEN 325 MG TABLET 650 MG PO ×2 (14:58→20:07)
--- NOTE | 2024-06-10 16:10 | OBPPTRN ---
Patient transferred to post room #284 via (wheelchair). Support person present. Oriented to unit, room, information board, rooming in, admission packet and security measures. Patient verbalizes understanding.
--- NOTE | 2024-06-10 17:44 | OBPPTRN ---
Patient transferred to post room # 284 via wheelchair ( ). Support person present. Oriented to unit, room, information board, rooming in, admission packet and security measures. Patient verbalizes understanding.
[2024-06-10] MEDS: MULTIVIT/MIN/PREN/FOL AC/IRON TABLET 1 TAB PO (20:08)
--- NOTE | 2024-06-10 22:25 | PC.NURSE ---
syringes provided for MOB to collect colostrum from hand expression, education given on how to feed hand expressed milk using bottle or gloved fingertip if not enough for bottle.
[2024-06-11] MEDS: ACETAMINOPHEN 325 MG TABLET 650 MG PO ×2 (02:39→08:26)
[2024-06-11 05:00] VITALS: BP 135/98; PULSE 83; TEMP 36.3
[2024-06-11 05:06] LABS: Hematocrit 24.1 % (37.0-47.0); Hemoglobin 7.8 g/dL (12.0-15.0)
[2024-06-11] MEDS: IBUPROFEN 600 MG TABLET PO ×2 (06:47→13:04)
[2024-06-11 07:45] VITALS: BP 127/83; PULSE 80; RESP 16; TEMP 37.1; O2SAT 100
[2024-06-11] MEDS: DOCUSATE SODIUM 100 MG CAPSULE PO (08:29)
[2024-06-11] MEDS: POLYSACCHARIDE IRON COMPLEX 150 MG CAPSULE PO (08:30)
[2024-06-11] MEDS: LEVOTHYROXINE SODIUM 25 MCG TABLET PO (08:31)
[2024-06-11] MEDS: IRON SUCROSE COMPLEX 200 MG in SODIUM CHLORIDE 0.9% IV 100 ML 220 MG IVPB (08:31)
--- NOTE | 2024-06-11 08:32 | PM.OBPNVD ---
OB - PN: Subj Subjective Date/time seen: 06/11/24 08:32 Interval history: PPD#1 Doing well, some cramping with Voiding without issues Ready for discharge today OB - PN: Obj Data Labs 06/11/24 04:57 06/09/24 11:45 Labs: Laboratory Results - last 24 hr 06/11/24 04:57 Hgb 7.8 L Hct 24.1 L OB - PN A/P Assessment and Plan (1) Gestational hypertension: Code(s): O13.9 - Gestational [-induced] hypertension without significant proteinuria, unspecified trimester Status: Acute Assessment and Plan: - asymptomatic - BP overall well controlled - BP check in 1 week (2) (spontaneous vaginal delivery): Code(s): O80 - Encounter for full-term uncomplicated delivery Status: Acute (3) Anemia: Code(s): D64.9 - Anemia, unspecified Status: Acute Assessment and Plan: - Hgb 7.8 - discussed Fe infusion vs blood transfusion and r/b of each - patient desires FE infusion - Venofer infusion ordered Plan day: 1 Plan: routine care and discharge home Time Spent With Patient Time: Total time spent is greater than 50% in coordination of care (as documented) at patient's floor/unit and/or counseling patient: Review of Systems Review of Systems: All systems reviewed & are unremarkable except as noted in HPI and below Exam Const: General: comfortable and no acute distress Orientation/consciousness: patient oriented x3 Resp: Effort & Inspection: normal respiratory effort
--- NOTE | 2024-06-11 08:44 | P.DS_ITS ---
DS: Admitting Diagnosis Discharge Date 06/11/24 Admitting Diagnosis medical induction of labor, gestational HTN DS: Discharge Diagnosis Discharge Diagnosis (1) Anemia: Code(s): D64.9 - Anemia, unspecified Status: Acute (2) (spontaneous vaginal delivery): Code(s): O80 - Encounter for full-term uncomplicated delivery Status: Acute (3) Gestational hypertension: Code(s): O13.9 - Gestational [-induced] hypertension without significant proteinuria, unspecified trimester Status: Acute OB - DS: Summary OB Procedures : None OB Procedures Intrapartum: Spontaneous Vag Delivery OB Procedures: : None Peripartum Data Laceration Description: Perineal - 1st Degree Episiotomy description: None Time Spent with Patient Time attestation: Total time spent providing and/or coordinating discharge services: DS: Data Data Completed and Pending Labs on day of discharge: Labs from last 24 hours 06/11/24 04:57 Hgb 7.8 L Hct 24.1 L Discharge Plan Discharge Attending physician on discharge: Nasir Rodriguez Discharging Clinician: Nasir Rodriguez Patient Disposition: Home, Self-Care Activity: may shower, as tolerated and pelvic rest Diet: as tolerated Patient Instructions: Antibiotic Form Stand Alone Forms: General Discharge Information Follow-up/Referrals: Nasir Rodriguez MD [Physician] - 1 Week Discharge Medications: New docusate sodium 100 mg Capsule 100 mg PO BID PRN (Reason: Constipation) Qty: 60 0RF ibuprofen 600 mg Tablet 600 mg PO Q6H PRN (Reason: Cramping) Qty: 30 0RF Continued sertraline 25 mg Tablet 25 mg PO DAILY levothyroxine 25 mcg Tablet 25 mcg PO DAILY Unisom (doxylamine) 25 mg Tablet 12.5 mg PO HS PRN (Reason: Sleep) magnesium glycinate 100 mg Tablet 350 mg PO DAILY PRN (Reason: Sleep) Vitamin Plus Low Iron 27 mg iron- 1 mg Tablet 1 tablet PO HS Discontinued aspirin [Aspir-81] 81 mg Tablet,Delayed Release (Dr/Ec) 81 mg PO HS Date of admission: 06/09/24 11:17 Primary Care Provider: PHYSICIAN,COMPUTER HARDWARE DESIGNER Admitting Provider: Nasir Rodriguez Attending physician on admission: Nasir Rodriguez Condition: Stable
[2024-06-11 12:28] VITALS: BP 126/80; PULSE 89; RESP 16; TEMP 36.6; O2SAT 99
--- NOTE | 2024-06-11 12:30 | PC.NURSE ---
Consulted with mother concerning needs and she shared her ability to independently latch infant. She states she has a large nipple and she is initially sore with all her babies. She has a nipple shield that she uses occasionally. Mother is feeding appropriately for growth of infant and understands stimulating infant to eat if needed. has had appropriate feedings in the last 24 hours meets the outcomes for weight, output, blood sugar and jaundice at this time. Reinforced understanding of milk production, transition of milk, signs of adequate intake, transition of stool, prevention/relief of engorgement, plugged ducts, mastitis, responsive watching for feeding cues, community resources, and when to call a provider using the resource of the feeding sheet along with the mom and baby guide and the Advice for Common Issues handout. Mother voiced understanding of the information shared, is confident to continue effectively her at home, when to call for assistance, denies any additional assistance or education at this time. Reported to the Primary RN.
--- NOTE | 2024-06-11 20:48 | PC.NURSE ---
1300 Patient viewed the discharge video Mother & Baby Care, The First Two Weeks . Patient was given the opportunity and encouraged to ask questions. Patient verbalized understanding of information shared and has been given the mother/baby guide for home reference.
[2024-06-12 11:30] VITALS: BP 140/89; PULSE 97; RESP 18; TEMP 36.8; O2SAT 99
== END 2024-06-11 14:10 | disposition home or self-care (01) | DRG 807 ==
LOC: ANHLDR 11:21 → ANHOB2 06-10 14:48
PROVIDERS: Admitting Provider Obstetrics & Gynecology; Visit Provider Obstetrics & Gynecology
DX: O13.4 Gestational [pregnancy-induced] hypertension without significant proteinuria, complicating childbirth (principal); Z37.0 Single live birth; Z3A.38 38 weeks gestation of pregnancy; O70.0 First degree perineal laceration during delivery; O69.81X0 Labor and delivery complicated by cord around neck, without compression, not applicable or unspecified; O99.02 Anemia complicating childbirth; D64.9 Anemia, unspecified; O99.344 Other mental disorders complicating childbirth; F41.9 Anxiety disorder, unspecified
CPT/HCPCS: 36415; 80053; 82570; 84156; 84550; 85014; 85018; 85025; 86592; 86703; 86850; 86880; 86900; 86901; A9270; G0432; J2405; J2590; J2795; J7120

== ENCOUNTER 2025-07-07 11:45 | Outpatient (CLI) | payer BC, SELFPAY ==
--- NOTE | ~2025-07-07 | US_ITS ---
EXAMINATION: US thyroid DATE: 07/07/2025 12:07 INDICATION: Thyroid nodule TECHNIQUE: Multiple ultrasound images of the thyroid were obtained. COMPARISON: None. FINDINGS: The right thyroid lobe measures 5.2 x 2.0 x 1.8 cm. The left thyroid lobe measures 4.9 x 1.6 x 1.8 cm. There are cystic or nearly entirely cystic TI RADS 1 nodules measuring 1.6 cm in the right thyroid lobe and 7 mm at the superior left thyroid lobe. There is a 1.5 cm mixed solid and cystic nodule in the mid to inferior left thyroid lobe which is wider than tall with hypoechoic solid component, smooth margins and without echogenic foci (TI-RADS 3, mildly suspicious , FNA if >=2.5 cm, annual followup is >=1.5 cm). In the inferior left thyroid lobe there is a 1.2 cm wider than tall mixed cystic and solid nodule with hypoechoic solid component, mildly lobular margins and without echogenic foci. (TI-RADS 4, moderately suspicious , FNA if >=1.5 cm, annual followup is >=1 cm). There is normal echotexture, echogenicity and vascular flow throughout the remainder of the thyroid gland. IMPRESSION: 1. Multinodular goiter. Recommend annual ultrasound follow-up for the 1.5 cm TI RADS 3 and 1.2 cm TI RADS 4 nodules in the left thyroid lobe. Reviewed, dictated and finalized at location A.
== END 2025-07-07 11:46 | disposition home or self-care (01) ==
LOC: GOSHIMG 11:45
PROVIDERS: PCP Otolaryngology; Visit Provider Otolaryngology
DX: E04.2 Nontoxic multinodular goiter (principal)
CPT/HCPCS: 76536